=== PATIENT | male | born 1940 | race Two or more races ===

== ENCOUNTER → 2016-06-09 | Outpatient (CLI) | payer MEDICARE, OTHER ==
[2016-06-09 09:43] LABS: Basophils # (auto) 0 uL; Basophils % (auto) 0.4 % (0.0-2.0); Eosinophils # (auto) 0.2 uL; Eosinophils % (auto) 3.6 % (0.0-7.0); Hematocrit 47.3 % (41.0-53.0); Hemoglobin 15.1 g/dL (13.5-17.5); Lymphocytes # (auto) 1.8 uL; Lymphocytes % (auto) 35.9 % (10.0-50.0); Mean Corpuscular Hgb Conc. 31.9 g/dL (32.0-36.0); Mean Corpuscular Volume 87.9 fL (80.0-100.0); Mean Platelet Volume 10.3 fL (7.4-10.4); Monocytes # (auto) 0.5 uL; Monocytes % (auto) 10.8 % (0.0-12.0); Neutrophils # (auto) 2.5 uL; Neutrophils % (auto) 49.3 % (37.0-80.0); Platelet Count (auto) 193 10^3/uL (140-450); Red Cell Distribution Width 13.9 % (11.6-16.0)
[2016-06-09 10:03] LABS: Albumin 4.2 g/dL (3.4-5.0); BUN/Creatinine Ratio 31.5; Bilirubin, Total 0.7 mg/dL (0.2-1.0); Calcium 8.9 mg/dL (8.5-10.1); Phosphorus 2.4 mg/dL (2.5-4.90); Potassium 4.4 mmol/L (3.5-5.1); Total Protein 7.7 g/dL (6.4-8.2)
== END | disposition home or self-care (01) ==
LOC: LAB 09:25
PROVIDERS: ATTEND Internal Medicine
DX: M81.8 Other osteoporosis without current pathological fracture (principal)
CPT/HCPCS: 36415; 80053; 82306; 84100; 84153; 85025

== ENCOUNTER → 2017-06-21 | Outpatient (CLI) | payer MEDICARE, OTHER ==
[2017-06-21 08:49] LABS: Basophils # (auto) 0 uL; Basophils % (auto) 0.7 % (0.0-2.0); Eosinophils # (auto) 0.1 uL; Eosinophils % (auto) 2.6 % (0.0-7.0); Hematocrit 46.2 % (41.0-53.0); Hemoglobin 15.3 g/dL (13.5-17.5); Lymphocytes # (auto) 1.2 uL; Lymphocytes % (auto) 25.7 % (10.0-50.0); Mean Corpuscular Hemoglobin 29.2 pg (28.0-32.0); Mean Corpuscular Hgb Conc. 33.2 g/dL (32.0-36.0); Mean Corpuscular Volume 87.9 fL (80.0-100.0); Monocytes # (auto) 0.5 uL; Monocytes % (auto) 11.4 % (0.0-12.0); Neutrophils # (auto) 2.7 uL; Neutrophils % (auto) 59.6 % (37.0-80.0); Nucleated Red Blood Cells % 0.1 %; Platelet Count (auto) 184 10^3/uL (140-450); Red Blood Cells 5.25 10^6/uL (4.5-5.90); Red Cell Distribution Width 13.7 % (11.8-14.3); White Blood Cell 4.6 10^3/uL (4.4-10.8)
[2017-06-21 09:04] LABS: Albumin 4.1 g/dL (3.4-5.0); BUN/Creatinine Ratio 28.3; Calcium 8.7 mg/dL (8.5-10.1); Magnesium 2.2 mg/dL (1.6-2.6); Potassium 4.1 mmol/L (3.5-5.1)
[2017-06-21 09:07] LABS: Bilirubin, Total 0.9 mg/dL (0.2-1.0); Total Protein 7.9 g/dL (6.4-8.2)
[2017-06-23 09:29] LABS: Hepatitis B Surface Antigen Negative (Negative)
[2017-06-23 09:53] LABS: Hepatitis C Antibody Negative (Negative)
[2017-06-23 09:54] LABS: Hepatitis B Core IgM Negative
[2017-06-23 09:56] LABS: Hepatitis A Ab IgM Negative
== END | disposition home or self-care (01) ==
LOC: LAB 08:16
PROVIDERS: ATTEND Internal Medicine
DX: R53.1 Weakness (principal)
CPT/HCPCS: 36415; 80053; 80074; 83735; 85025; 85652